=== PATIENT | male | born 1980 | race Caucasian/White ===

== ENCOUNTER 2016-12-05 22:35 | Emergency (ER) | payer BC ==
[~2016-12-05] VITALS: Ht 190.5 cm; Wt 112.5 kg
[~2016-12-05 22:35] MED LIST: LISI-461 PO; TPRSR/100 PO
[2016-12-05 22:39] VITALS: TEMP 36.6; Ht 190.5 cm; Wt 112.5 kg
[2016-12-05] MEDS ORDERED: LISI-461 PO (22:57)
[2016-12-05] MEDS ORDERED: TPRSR/100 PO (22:57)
--- NOTE | 2016-12-05 23:03 | EMERGENCY ROOM VISIT NOTE ---
History Report prepared by Jimeneziblida: Lou Bronson Under the Supervision of: Dr. Landon Ramirez D.O. First contact with patient: 22:46 Chief Complaint: LEG PAIN,LEG INJURY Stated Complaint: LF LEG PAIN History of Present Illness The patient is a 36 year old male who presents to the Emergency Room with complaints of persistent left leg pain for the past 2 days. He is accompanied by his . He rates his discomfort as a 6/10. His son accidentally touched his leg with his foot tonight, and the pain was "unbearable", so he decided to come to the ED. The patient reports he had a twin brother who from a PE approximately 10 years ago, and notes he did undergo extensive genetic testing after his brother . He states his tests "all came back negative". He denies any recent fevers, chest pain, shortness of breath, nausea or vomiting. Source of History: patient Onset: 2 days [employer] LEARN[employer] Position: leg (left) Symptom Intensity: 6/10 Timing: other (persistent) Modifying Factors (Worsening): other (touch) Associated Symptoms: No fevers, No chest pain, No SOB, No nausea, No vomiting Review of Systems See HPI for pertinent positives & negatives. A total of 10 systems reviewed and were otherwise negative. Past Medical & Surgical Medical Problems: (1) Essential hypertension Family History Pulmonary embolism Social History Smoking Status: Never Smoker Alcohol Use: none Drug Use: none Marital Status: Housing Status: lives with family Occupation Status: employed Current/Historical Medications Scheduled Enoxaparin Sodium (Lovenox), 120 MG SQ Q12 Lisinopril (Zestril), 10 MG PO DAILY Metoprolol Succinate (Metoprolol Succinate ER), 150 MG PO DAILY Warfarin Sodium (Coumadin), 5 MG PO DAILY Allergies Coded Allergies: Penicillins (Verified Allergy, Unknown, 12/05/16) Physical Exam Vital Signs Date Time Temp Pulse Resp B/P (MAP) Pulse Ox O2 Delivery O2 Flow Rate FiO2 12/06/16 01:11 50 16 132/83 97 Room Air 12/06/16 00:25 56 16 137/83 98 Room Air 12/05/16 22:39 36.6 44 20 165/94 98 Room Air Physical Exam GENERAL: Patient is awake, alert, in no acute distress, patient is resting comfortably and showing no signs of anxiety EYES: The conjunctivae are clear. The pupils are round and reactive. EARS, NOSE, MOUTH AND THROAT: The nose is without any evidence of any deformity. Mucous membranes are moist tongue is midline NECK: The neck is nontender and supple. RESPIRATORY: Normal respiratory effort is noted there is no evidence of wheezing rhonchi or rales CARDIOVASCULAR: Regular rate and rhythm noted there no murmurs rubs or gallops normal S1 normal S2 GASTROINTESTINAL: The abdomen is soft. Bowel sounds are present in all quadrants. Abdomen is nontender MUSCULOSKELETAL/EXTREMITIES: Induration and erythema over the medial aspect of the left thigh, no tenderness over the popliteal fossa, trace pedal edema noted bilaterally. Full range of motion is noted in the hips and shoulders SKIN: There is no obvious evidence of any rash. There are no petechiae, pallor or cyanosis noted. NEUROLOGIC: Patient is awake alert and oriented x3 Medical Decision & Procedures ER Provider Diagnostic Interpretation: Radiology results as stated below per my review and radiologist interpretation: US VENOUS LEFT LOWER EXTREMITY: Occlusive thrombus noted in the left greater saphenous vein extending from the proximal thighs to the proximal calf. The left greater saphenous vein is patent and compressible in the distal left calf. Fibrinous strands in the left popliteal vein may be related to prior DVT. No acute thrombus identified. Left popliteal vein is patent. No other deep venous thrombosis in the left lower extremity. Radiologist: Josee Rodriguez M.D. Laboratory Results 12/05/16 23:05 Red Blood Count 5.52, Mean Corpuscular Volume 85.9, Mean Corpuscular Hemoglobin 28.8, Mean Corpuscular Hemoglobin Concent 33.5, Mean Platelet Volume 9.3, Neutrophils (%) (Auto) 43.6, Lymphocytes (%) (Auto) 41.3, Monocytes (%) (Auto) 11.7, Eosinophils (%) (Auto) 3.1, Basophils (%) (Auto) 0.3, Neutrophils # (Auto ) 3.22, Lymphocytes # (Auto) 3.05, Monocytes # (Auto) 0.86, Eosinophils # (Auto ) 0.23, Basophils # (Auto) 0.02 12/05/16 23:05 Test 12/05/16 23:05 White Blood Count 7.38 K/uL (4.8-10.8) Red Blood Count 5.52 M/uL (4.7-6.1) Hemoglobin 15.9 g/dL (14.0-18.0) Hematocrit 47.4 % (42-52) Mean Corpuscular Volume 85.9 fL (80-100) Mean Corpuscular Hemoglobin 28.8 pg (25-34) Mean Corpuscular Hemoglobin Concent 33.5 g/dl (32-36) Platelet Count 170 K/uL (130-400) Mean Platelet Volume 9.3 fL (7.4-10.4) Neutrophils (%) (Auto) 43.6 % Lymphocytes (%) (Auto) 41.3 % Monocytes (%) (Auto) 11.7 % Eosinophils (%) (Auto) 3.1 % Basophils (%) (Auto) 0.3 % Neutrophils # (Auto) 3.22 K/uL (1.4-6.5) Lymphocytes # (Auto) 3.05 K/uL (1.2-3.4) Monocytes # (Auto) 0.86 K/uL (0.11-0.59) Eosinophils # (Auto) 0.23 K/uL (0-0.5) Basophils # (Auto) 0.02 K/uL (0-0.2) RDW Standard Deviation 40.8 fL (36.4-46.3) RDW Coefficient of Variation 12.8 % (11.5-14.5) Immature Granulocyte % (Auto) 0.0 % Immature Granulocyte # (Auto) 0.00 K/uL (0.00-0.02) Prothrombin Time 10.5 SECONDS (9.0-12.0) Prothromb Time International Ratio 1.0 (0.9-1.1) Activated Partial Thromboplast Time 24.4 SECONDS (21.0-31.0) Partial Thromboplastin Ratio 0.9 Anion Gap 5.0 mmol/L (3-11) Est Creatinine Clear Calc Drug Dose 136.9 ml/min Estimated GFR () 110.9 Estimated GFR (Non- 95.7 BUN/Creatinine Ratio 18.8 (10-20) Calcium Level 8.8 mg/dl (8.5-10.1) Total Bilirubin 0.5 mg/dl (0.2-1) Direct Bilirubin 0.1 mg/dl (0-0.2) Aspartate Amino Transf (AST/SGOT) 15 U/L (15-37) Alanine Aminotransferase (ALT/SGPT) 25 U/L (12-78) Alkaline Phosphatase 96 U/L (45-117) Total Protein 7.0 gm/dl (6.4-8.2) Albumin 3.6 gm/dl (3.4-5.0) Laboratory results per my review. Medications Administered Medications (Trade) Dose Ordered Sig/Lisandra Route Start Time Stop Time Status Last Admin Dose Admin Enoxaparin Sodium (Lovenox Inj) 120 mg NOW ONCE SQ 12/06/16 00:45 12/06/16 00:46 DC 12/06/16 01:14 120 MG Warfarin Sodium (Coumadin Tab) 10 mg NOW ONCE PO 12/06/16 00:45 12/06/16 00:46 DC 12/06/16 01:14 10 MG ED Course 2257: The patient was evaluated in room C6. A complete history and physical examination were performed. 0045: Warfarin Sodium 10 mg PO, Lovenox 120 mg SQ. 0130: I reevaluated the patient. He is feeling well. I discussed his results and discharge instructions and he verbalized complete understanding and agreement. Medical Decision Medication Reconciliation: I attest that I have personally reviewed the patient' s current medications list. Patient was found to have a slightly elevated blood pressure due to circumstances. I do not believe that the patient requires hypertension monitoring. Prior records reviewed. Triage Nursing notes reviewed. Differential diagnosis: Etiologies such as DVT, musculoskeletal, infection, joint effusion, trauma, lymphedema, idiopathic, CHF, as well as others were entertained.. The patient is a 36-year-old male with a family history of venous thromboembolic disease who presented to the emergency department with swelling and pain on the medial aspect of his thigh. The patient had a physical exam as well as an ultrasound consistent with venous thromboembolic disease. The patient has a very large saphenous vein clot. I do feel because of the location as well as the size this would necessitate anticoagulation. The patient was started on Lovenox and Coumadin in the emergency department. I discussed the patient's laboratory and radiographic studies with him. The patient was set up with the Coumadin clinic through the emergency Department briefcase sewer. He was encouraged to continue all medications as prescribed and return to the emergency apartment immediately if symptoms change worsen or the need arises. Impression Primary Impression: Deep vein thrombosis Scribe Attestation The scribe's documentation has been prepared under my direction and personally reviewed by me in its entirety. I confirm that the note above accurately reflects all work, treatment, procedures, and medical decision making performed by me. Departure Information Dispostion Home / Self-Care Prescriptions Enoxaparin Sodium (LOVENOX) 120 Mg/0.8 Ml Inj 120 MG SQ Q12, #14 SYR Prov: Landon Ramirez, DO 12/06/16 Warfarin Sodium (COUMADIN) 5 Mg Tab 5 MG PO DAILY, #30 TAB Prov: Landon Ramirez, DO 12/06/16 Referrals Rivas Lucero M.D. (PCP) Patient Instructions DVT, My [facility] Additional Instructions Follow-up with the Coumadin clinic as soon as possible. Continue all medications as prescribed. Problem Qualifiers Primary Impression: Deep vein thrombosis DVT location: lower extremity Affected thrombotic vein of extremity: unspecified vein of extremity Chronicity: acute Laterality: left Qualified Codes: I82.402 - Acute embolism and thrombosis of unspecified deep veins of left lower extremity
[2016-12-05 23:16] LABS: BASO % 0.3 %; BASO ABS # 0.02 K/uL (0-0.2); COMPLETE YES; EOS % 3.1 %; HEMATOCRIT 47.4 % (42-52); LYMPH % 41.3 %; LYMPH ABS # 3.05 K/uL (1.2-3.4); MEAN CELL VOLUME 85.9 fL (80-100); MEAN CORPUSCULAR HEMOGLOBIN 28.8 pg (25-34); MEAN CORPUSCULAR HGB CONC 33.5 g/dl (32-36); MEAN PLATELET VOLUME 9.3 fL (7.4-10.4); MONO % 11.7 %; NEUT % 43.6 %; PLATELET COUNT 170 K/uL (130-400); RED BLOOD COUNT 5.52 M/uL (4.7-6.1); WHITE BLOOD COUNT 7.38 K/uL (4.8-10.8)
[2016-12-05 23:26] LABS: PARTIAL THROMBOPLASTIN RATIO 0.9; PROTHROMBIN TIME (PATIENT) 10.5 SECONDS (9.0-12.0)
[2016-12-05 23:34] LABS: BUN/CREATININE RATIO 18.8 (10-20); CALCIUM 8.8 mg/dl (8.5-10.1); POTASSIUM 3.9 mmol/L (3.5-5.1)
[2016-12-06] MEDS ORDERED: WARFARIN SOD 5 MG TAB PO ONE (00:45)
[2016-12-06] MEDS ORDERED: ENOXAPARIN 120 MG/0.8 ML SYR SQ ONE (00:45)
[2016-12-06] MEDS ORDERED: WARF5TAB90 PO (00:51)
[2016-12-06] MEDS ORDERED: ENOX1INJ13 SQ (00:51)
[2016-12-06 01:11] VITALS: BP 132/83; PULSE 50; O2SAT 97
--- NOTE | 2016-12-06 05:56 | DIAGNOSTIC IMAGING REPORT ---
LEFT VENOUS DOPP LOWER EXT UNILAT CLINICAL HISTORY: LLE pain pain TECHNIQUE: Venous Doppler COMPARISON STUDY: None FINDINGS: Findings of superficial thrombophlebitis involving the greater and to lesser extent lesser saphenous vein. Deep venous structures show no evidence for acute deep venous thrombosis. Moderate venous scarring of the left popliteal vein most likely secondary to old or chronic thrombophlebitic change. IMPRESSION: 1. Superficial thrombophlebitis. 2. No evidence for acute deep venous thrombosis. 3. Moderate scarring left popliteal vein considered old/chronic The above report was generated using voice recognition software. It may contain grammatical, syntax or spelling errors. Electronically signed by: Herb Hill M.D. 12/06/2016 5:55 AM Dictated Date/Time: 12/06/2016 5:53 AM
== END 2016-12-06 01:30 | disposition home or self-care (01) ==
LOC: C.EDB 22:36 → C.EDC 12-06 01:30
DX: I82.402 Acute embolism and thrombosis of unspecified deep veins of left lower extremity (principal); I10 Essential (primary) hypertension; Z82.49 Family history of ischemic heart disease and other diseases of the circulatory system; Z79.899 Other long term (current) drug therapy